=== PATIENT | male | born 1955 | race Caucasian/White ===

== ENCOUNTER 2018-08-25 15:14 | Emergency (ER) | payer BC ==
[~2018-08-25] VITALS: Ht 172.7 cm; Wt 70.5 kg
[2018-08-25 15:24] VITALS: Ht 172.7 cm; Wt 70.5 kg
[2018-08-25] MEDS ORDERED: SOD CHLORIDE 0.9% 1,000 ML IV STA (15:31)
--- NOTE | 2018-08-25 17:17 | ERD ---
ER Documentation Chief Complaint Chief Complaint BIB [id number] from street: dizzy, weak while walking. hx HTN, ETOH abuse HPI Patient is a 63-year-old male with hypertension who presents with dizziness. The patient was brought in by ambulance. He said that he just came out of the [employer] and felt like he was walking with reading glasses on. He stumbled and felt dizzy. His gait was unsteady. He denies pain. He said that he has been taking his Benicar irregularly. He denies bleeding. He has not drank alcohol for 1 month. He only ate cereal for breakfast today. He had no lunch. He does have a primary doctor in [place]. ROS All systems reviewed and are negative except as per history of present illness. Medications Home Meds Reported Medications Folic Acid* (Folic Acid*) 1 Mg Tablet, 1 MG PO DAILY, TAB 08/25/18 Potassium Chloride* (K-Dur*) 10 Meq Tab.prt.sr, 10 MEQ PO BID, TAB 08/25/18 Zolpidem Tartrate* (Zolpidem Tartrate*) 5 Mg Tablet, 5 MG PO QHS PRN for INSOMNIA, #30 TAB 08/25/18 Propranolol Hcl* (Propranolol Hcl*) 40 Mg Tablet, 40 MG PO BID, TAB 08/25/18 Olmesartan Medoxomil (Benicar) 20 Mg Tablet, 20 MG PO DAILY, #30 TAB 08/25/18 Disulfiram (DISULFIRAM) 250 Mg Tablet, 250 MG PO DAILY, TAB 08/25/18 Allergies Allergies: Coded Allergies: No Known Allergy (Unverified , 08/25/18) PMhx/Soc History of Surgery: Yes (INGUINAL HERNIA REPAIR X2) Hx Cardiac Disorders: Yes (HTN) Hx Miscellaneous Medical Probl: Yes (BLADDER CA) Hx Alcohol Use: Yes (LAST DRINK X1 MONTH AGO) Hx Substance Use: No Hx Tobacco Use: No Smoking Status: Never smoker FmHx Family History: No diabetes Physical Exam Vitals Vital Signs Date Temp Pulse Resp B/P (MAP) Pulse Ox O2 O2 Flow FiO2 Time Delivery Rate 08/25/18 76 17 129/94 100 Room Air 17:23 (106) 08/25/18 71 11 113/82 99 Room Air 16:15 (92) 08/25/18 97.5 74 20 78/53 (61) 96 15:24 Physical Exam Const: No acute distress Head: Atraumatic Eyes: Normal Conjunctiva ENT: Normal External Ears, Nose and Mouth. Neck: Full range of motion. No meningismus. Resp: Clear to auscultation bilaterally Cardio: Regular rate and rhythm, no murmurs Abd: Soft, non tender, non distended. Normal bowel sounds Skin: No petechiae or rashes Back: No midline or flank tenderness Ext: No cyanosis, or edema Neur: Awake and alert Psych: Normal Mood and Affect Result Diagram: 08/25/18 1535 08/25/18 1535 Results 24 hrs Laboratory Tests Test 08/25/18 15:35 08/25/18 15:41 White Blood Count 7.0 10^3/ul Red Blood Count 3.67 10^6/ul Hemoglobin 12.7 g/dl Hematocrit 37.5 % Mean Corpuscular Volume 102.2 fl Mean Corpuscular Hemoglobin 34.6 pg Mean Corpuscular Hemoglobin Concent 33.9 g/dl Red Cell Distribution Width 12.1 % Platelet Count 452 10^3/UL Mean Platelet Volume 9.7 fl Immature Granulocytes % 0.400 % Neutrophils % 70.4 % Lymphocytes % 20.0 % Monocytes % 6.5 % Eosinophils % 1.8 % Basophils % 0.9 % Nucleated Red Blood Cells % 0.0 /100WBC Immature Granulocytes # 0.030 10^3/ul Neutrophils # 5.0 10^3/ul Lymphocytes # 1.4 10^3/ul Monocytes # 0.5 10^3/ul Eosinophils # 0.1 10^3/ul Basophils # 0.1 10^3/ul Nucleated Red Blood Cells # 0.0 10^3/ul Sodium Level 138 mmol/L Potassium Level 5.0 mmol/L Chloride Level 105 mmol/L Carbon Dioxide Level 24 mmol/L Anion Gap 9 Blood Urea Nitrogen 8 mg/dl Creatinine 1.18 mg/dl Est Glomerular Filtrat Rate mL/min > 60 mL/min Glucose Level 150 mg/dl Calcium Level 9.5 mg/dl Total Bilirubin 0.6 mg/dl Direct Bilirubin 0.00 mg/dl Indirect Bilirubin 0.6 mg/dl Aspartate Amino Transf (AST/SGOT) 44 IU/L Alanine Aminotransferase (ALT/SGPT) 31 IU/L Alkaline Phosphatase 158 IU/L Troponin I < 0.012 ng/ml Total Protein 7.0 g/dl Albumin 3.4 g/dl Globulin 3.60 g/dl Albumin/Globulin Ratio 0.94 Lipase 292 U/L Bedside Glucose 142 mg/dL Current Medications Medications Dose Sig/Melecio Start Time Status Last (Trade) Ordered Route PRN Stop Time Admin Dose Reason Admin Sodium 1,000 ml @ Q1H STAT 08/25/18 DC 08/25/18 Chloride 1,000 mls/hr IV 15:31 15:45 08/25/18 16:30 Procedures/MDM EKG read by me: Rate/Rhythm: Regular rate and rhythm at a rate of 72 Intervals: QTC prolonged at 510 Impression: No evidence of ischemia or arrhythmia Patient is a 63-year-old male with hypertension who presents with dizziness. Laboratory studies were basically normal. EKG shows a normal sinus rhythm with no ischemia. I doubt acute coronary syndrome. I doubt serious elect light abnormality. He has mild anemia but does not require transfusion. The patient feels better after 1 L of normal saline for fluid resuscitation. The patient will be discharged but will need to follow-up closely with his primary doctor within 24 to 48 hours for reevaluation. He can return sooner for any worsening symptoms. Departure Diagnosis: Primary Impression: Dizziness Additional Impression: Acute weakness Condition: Fair Patient Instructions: Dizziness, Unk Cause, Weakness, Unk Cause Referrals: Your doctor Additional Instructions: Call your primary care doctor TOMORROW for an appointment during the next 1-2 days.See the doctor sooner or return here if your condition worsens before your appointment time. HELLEN SALGUERO MD Aug 25, 2018 17:17
[2018-08-25] MEDS ORDERED: DISU250T PO (17:22)
[2018-08-25 17:23] VITALS: BP 129/94; PULSE 76; RESP 17
[2018-08-25] MEDS ORDERED: OLME20TA20 PO (17:23)
[2018-08-25] MEDS ORDERED: PROP40TA4 PO (17:23)
[2018-08-25] MEDS ORDERED: ZOLP5TAB7 PO (17:24)
[2018-08-25] MEDS ORDERED: FOLI-49 PO (17:26)
[2018-08-25] MEDS ORDERED: POTA10TA37 PO (17:26)
== END 2018-08-25 17:27 | disposition home or self-care (01) ==
LOC: E/R 15:14
DX: R42 Dizziness and giddiness (principal); R53.1 Weakness; I10 Essential (primary) hypertension; R40.2142 Coma scale, eyes open, spontaneous, at arrival to emergency department; R40.2362 Coma scale, best motor response, obeys commands, at arrival to emergency department; R40.2252 Coma scale, best verbal response, oriented, at arrival to emergency department; Z85.51 Personal history of malignant neoplasm of bladder
CPT/HCPCS: 36415; 80053; 82962; 83690; 84484; 85025; 93005; 99284; J7030